=== PATIENT | male | born 1980 | race American Indian/Alaskan Native ===

== ENCOUNTER 2019-05-23 16:50 | Emergency (ER) | payer SELFPAY | END 2019-05-23 19:53 | disposition left against medical advice (07) | LOC: ED 16:50 | DX: R51 Headache (principal); Z53.21 Procedure and treatment not carried out due to patient leaving prior to being seen by health care provider ==

== ENCOUNTER 2019-05-27 22:16 | Emergency (ER) | payer SELFPAY ==
[2019-05-27 23:03] VITALS: BP 141/81
--- NOTE | 2019-05-28 00:34 | Emergency Department Report ---
Chief Complaint: Dental/Oral Stated Complaint: TOOTHACHE Time Seen by Provider: 05/28/19 00:18 - HPI History of Present Illness: Patient is a 39-year-old male presents emergency room with complaints of left upper dental pain that began approximately 2 to 3 weeks ago. He states that he has not seen a dentist in about 3 years. He denies any nausea, vomiting, diarrhea, difficulty swallowing, difficulty breathing. He has a past medical history of asthma and diabetes. He denies any allergies to medications. VSS on exam: non toxic appearing, no acute distress atraumatic, normal cephalic normal turbinates, normal oropharynx, three cracked/missing teeth present in the left upper jaw line, there is no edema, no induration of the gum line, there is no facial swelling, uvula is midline, no uvular edema, no ttp underneath the tongue, no uvular deviation normal breath sounds bilaterally, no w/r/r regular heart rate and rhythm, no gallops, no murmurs, no rubs skin warm, dry, intact A&Ox4 No signs of abscess, no signs of facial cellulitis, no peritonsillar abscess, no siloadenitis Patient is presenting with tooth ache from dental caries and cracked teeth Patient is presenting with a non-medical emergency at this time, medical screening examination performed and there is no threat to life or limb at this time Patient given community sources for dental clinics and stressed the importance of patient following up with a dentist for further evaluation and management - Exam Vital Signs: Vital Signs 05/27/19 22:30 Temperature 98.1 F Pulse Rate 84 Respiratory 18 Rate Blood Pressure 141/81 O2 Sat by Pulse 97 Oximetry MSE screening note: Focused history and physical exam performed. ED Disposition for MSE Clinical Impression: Dental caries, Cracked tooth Disposition: Z-07 MED SCREENING EXAM-LEFT Is pt being admited?: No Does the pt Need Aspirin: No Condition: Stable Instructions: Dental Caries (ED) Additional Instructions: May alternate Tylenol then ibuprofen every 4-6 hours as needed for dental pain. May use the [id number] dental putty. Follow-up with a dentist in the next 2 to 3 days for further evaluation and management. It is very important that yo u follow-up with a dentist. Return to the emergency room for any new or worsening symptoms. Referrals: [facility] [Outside] - 2-3 Days Time of Disposition: 00:33 Print Language: BULGARIAN
== END 2019-05-28 00:43 | disposition left against medical advice (07) ==
LOC: ED 22:16
DX: K02.9 Dental caries, unspecified (principal); K03.81 Cracked tooth
CPT/HCPCS: 99282

== ENCOUNTER 2020-08-22 09:38 | Emergency (ER) | payer BC, OTHER ==
[2020-08-22 10:43] VITALS: BP 130/64
--- NOTE | 2020-08-22 10:45 | Emergency Department Report ---
- General Chief Complaint: Upper Respiratory Infection Stated Complaint: CHEST PAIN/STOMACH PAIN/COLD SYMPTOMS Time Seen by Provider: 08/22/20 10:34 Source: patient Mode of arrival: Ambulatory Limitations: No Limitations - History of Present Illness Initial Comments: 40-year-old male with a past medical history of asthma, hypertension but noncompliant with his medication, diabetes and hyperlipidemia presents to the ER today with complaints of URI symptoms and cough. Patient states her symptoms started about 5 days ago. He reports a productive cough with green sputum, intermittent wheezing, diffuse anterior chest pain worse when he coughs, sore throat, rhinorrhea, nasal congestion and shortness of breath. Patient states that he has been using his albuterol MDI but mainly as needed about 1 to 2 puffs/day since his symptoms started with some relief. He reports subjective fever for the first 2 days of symptom onset but none since then. His 4 kids are also here today with similar symptoms, but he states he was the first 1 to get sick, and as far as he knows he has not been around anybody sick. He has not taken any Covid test since he got sick. He reports no GI, symptoms or any other symptoms at this time. MD Complaint: cough -: days(s) (5) - Related Data Previous Rx's Medication Instructions Recorded Last Taken Type Azithromycin [Zithromax Z-LAMBERT] 250 mg PO DAILY #1 pack 08/22/20 Unknown Rx Benzonatate [Tessalon Perles] 100 mg PO Q8HR PRN #30 capsule 08/22/20 Unknown Rx Cetirizine HCl [Zyrtec 10mg tab] 10 mg PO DAILY #30 tablet 08/22/20 Unknown Rx predniSONE [Deltasone] 40 mg PO QDAY #10 tablet 08/22/20 Unknown Rx Allergies Allergy/AdvReac Type Severity Reaction Status Date / Time No Known Allergies Allergy Unverified 08/22/20 10:24 ED Review of Systems ROS: Stated complaint: CHEST PAIN/STOMACH PAIN/COLD SYMPTOMS Other details as noted in HPI Comment: All other systems reviewed and negative Constitutional: fever ENT: throat pain, congestion, other Respiratory: cough, shortness of breath, wheezing (Rhinorrhea) Cardiovascular: chest pain (Mainly when coughing; diffusely anterior chest) Gastrointestinal: denies: abdominal pain, nausea, vomiting, diarrhea, constipation, hematemesis, hematochezia Genitourinary: denies: urgency, dysuria, frequency, hematuria, discharge, testicular pain, testicular mass Musculoskeletal: denies: back pain, joint swelling, arthralgia, myalgia Skin: denies: rash, lesions, change in color, change in hair/nails, pruritus Neurological: denies: headache, weakness, numbness, paresthesias, confusion, abnormal gait, vertigo Psychiatric: as per HPI. denies: auditory hallucinations, visual hallucinations, homicidal thoughts, suicidal thoughts Hematological/Lymphatic: denies: easy bleeding, easy bruising ED Past Medical Hx - Past Medical History Previous Medical History?: Yes Hx Asthma: Yes - Medications Home Medications: Home Medications Medication Instructions Recorded Confirmed Last Taken Type Azithromycin [Zithromax Z-LAMBERT] 250 mg PO DAILY #1 pack 08/22/20 Unknown Rx Benzonatate [Tessalon Perles] 100 mg PO Q8HR PRN #30 capsule 08/22/20 Unknown Rx Cetirizine HCl [Zyrtec 10mg tab] 10 mg PO DAILY #30 tablet 08/22/20 Unknown Rx predniSONE [Deltasone] 40 mg PO QDAY #10 tablet 08/22/20 Unknown Rx ED Physical Exam - General Limitations: No Limitations General appearance: alert, in no apparent distress - Head Head exam: Present: atraumatic, normocephalic, normal inspection - Eye Eye exam: Present: normal appearance, PERRL, EOMI Pupils: Present: normal accommodation - ENT ENT exam: Present: normal exam, mucous membranes moist, TM's normal bilaterally - Neck Neck exam: Present: normal inspection, full ROM. Absent: meningismus - Respiratory Respiratory exam: Present: normal lung sounds bilaterally, wheezes (Faint expiratory wheezing noted in the right lung gonzalez). Absent: rales, stridor, chest wall tenderness, accessory muscle use, decreased breath sounds, prolonged expiratory - Cardiovascular Cardiovascular Exam: Present: regular rate, normal rhythm, normal heart sounds - GI/Abdominal GI/Abdominal exam: Present: soft. Absent: distended, tenderness, guarding, re bound - Neurological Exam Neurological exam: Present: alert, oriented X3, CN II-XII intact, normal gait - Psychiatric Psychiatric exam: Present: normal affect, normal mood - Skin Skin exam: Present: intact ED Course Vital Signs 08/22/20 08/22/20 10:43 11:19 Temperature 99.0 F Pulse Rate 86 Pulse Rate [ 86 Anterior Bilateral Throughout] Respiratory 18 Rate Respiratory 18 Rate [Anterior Bilateral Throughout] Blood Pressure 130/64 [Right] O2 Sat by Pulse 95 Oximetry ED Medical Decision Making - Radiology Data Radiology results: report reviewed Patient: NORMA BROWN MR#: [id number] : 1980 Acct:[id number] Age/Sex: 40 / M ADM Date: 08/22/20 Loc: ED Attending Dr: Ordering Physician: JANUSZ GOLD Date of Service: 08/22/20 Procedure(s): XR chest routine 2V Accession Number(s): [id number] cc: JANUSZ GOLD Fluoro Time In Minutes: CHEST 2 VIEWS INDICATION / CLINICAL INFORMATION: wheezing. COMPARISON: None available. FINDINGS: SUPPORT DEVICES: None. HEART / MEDIASTINUM: No significant abnormality. LUNGS / PLEURA: No significant pulmonary or pleural abnormality. No pneumothorax. ADDITIONAL FINDINGS: No significant additional findings. IMPRESSION: 1. No acute findings. Signer Name: Abad Bauman MD Signed: 08/22/2020 11:50 AM Workstation Name: [id number] Transcribed By: CW Dictated By: HARSHA BAUMAN MD Electronically Authenticated By: HARSHA BAUMAN MD Signed Date/Time: 08/22/20 115 DD/ 1150 TD/TT: - Medical Decision Making Patient reports feeling better after nebulized treatment. The wheezing has improved after the neb treatment. The patient is resting comfortably, is alert and in no distress. The patient has normal mental status and is neurologically intact and is ambulatory in the ER with no distress. The patient appears well and there is no significant dehydration. There is no respiratory distress and no signs of systemic toxicity. The history, exam, diagnostic testing and current condition do not demonstrate an infectious process such as meningitis, severe pneumonia, retropharyngeal abscess, epiglottitis, severe asthma attack sepsis or other serious bacterial infection requiring further testing, treatment, consultation or admission at this time. His fingerstick blood sugar was noted to be 325. He is on sliding scale insulin and has not taken any of his diabetic medication today. He was given a dose of subcu insulin in the ER. Did recommend that patient wait to have his blood sugar rechecked after insulin, but he was ready to leave after neb treatment especially saying that he would was also here with his 3 kids who are also being seen and ready for discharge. He states that he has insulin at home, and he also has a glucose monitor we will continue to monitor sugar at home especially while he is taking the steroids. He states that he is done it before she of asthma and has done fine with it. His vital signs have been stable. Recommend close follow-up with the primary care doctor listed on his discharge instructions. The patient's condition is stable and appropriate for discharge. Critical care attestation.: If time is entered above; I have spent that time in minutes in the direct care of this critically ill patient, excluding procedure time. ED Disposition Clinical Impression: Acute asthmatic bronchitis, URI (upper respiratory infection) Disposition: TO HOME OR SELFCARE Is pt being admited?: No Does the pt Need Aspirin: No Condition: Stable Instructions: Upper Respiratory Infection, Adult, [id number], Asthma, Adult, [id number], Acute Bronchitis, Adult, Acute Bronchitis (ED) Additional Instructions: I recommend that you do the albuterol inhaler every 4-6 hours, and take the prednisone as prescribed, make sure you monitor your blood sugar while taking the prednisone and also taking sliding scale insulin and continue your Metformin, if his blood sugar is persistently above 300 despite taking the sliding scale insulin and the Metformin, stop the prednisone and take the antibiotics and the Tessalon Perles as prescribed. I recommend that you get an outpatient COVID-19 test. Follow-up with the primary care doctor listed in your discharge instructions. Return to the ER if your symptoms changes or worsens in any way. Prescriptions: predniSONE [Deltasone] 40 mg PO QDAY #10 tablet Benzonatate [Tessalon Perles] 100 mg PO Q8HR PRN #30 capsule PRN Reason: Cough Azithromycin [Zithromax Z-LAMBERT] 250 mg PO DAILY #1 pack Cetirizine HCl [Zyrtec 10mg tab] 10 mg PO DAILY #30 tablet Referrals: PRIMARY CARE, [Primary Care Provider] - 3-5 Days Forms: Work/School Release Form(ED) Time of Disposition: 13:05
[2020-08-22] MEDS ORDERED: IPRATROPIUM/ALBUTEROL SULFATE 3 ML AMPUL.NEB IH ONE (11:01)
[2020-08-22] MEDS ORDERED: INSULIN NPH/REGULAR 70/30 INJ SUB-Q NR (11:23)
--- NOTE | 2020-08-22 11:55 | XRay Report ---
CHEST 2 VIEWS INDICATION / CLINICAL INFORMATION: wheezing. COMPARISON: None available. FINDINGS: SUPPORT DEVICES: None. HEART / MEDIASTINUM: No significant abnormality. LUNGS / PLEURA: No significant pulmonary or pleural abnormality. No pneumothorax. ADDITIONAL FINDINGS: No significant additional findings. IMPRESSION: 1. No acute findings. Signer Name: Abad Bauman MD Signed: 08/22/2020 11:50 AM Workstation Name: [email or web address] [id number]
== END 2020-08-22 13:10 | disposition home or self-care (01) ==
LOC: ED 09:38
DX: J45.909 Unspecified asthma, uncomplicated (principal); J06.9 Acute upper respiratory infection, unspecified; I10 Essential (primary) hypertension; E11.9 Type 2 diabetes mellitus without complications; E78.5 Hyperlipidemia, unspecified; Z79.899 Other long term (current) drug therapy
CPT/HCPCS: 71046; 82962; 94640; 94644; 96372; J1815